=== PATIENT | female | born 2000 | race African-American/Black ===

== ENCOUNTER 2022-08-30 14:54 | Emergency (ER) | payer MEDICAID ==
[~2022-08-30] VITALS: Ht 157.5 cm; Wt 70.0 kg
[2022-08-30 15:27] VITALS: TEMP 98.6
[2022-08-30] MEDS ORDERED: METOCLOPRAMIDE HCL 5 MG/ML 2 ML VIAL IVP ONE (15:45)
[2022-08-30] MEDS ORDERED: ACETAMINOPHEN 1000 MG/ISO-OSM 100 ML IV ONE (15:45)
[2022-08-30] MEDS ORDERED: SODIUM CHLORIDE 0.9% 1,000 ML IV ONE (15:45)
[2022-08-30 15:58] LABS: BASOPHILS % (AUTO) 0.5 % (0.0-2.0); EOSINOPHILS % (AUTO) 0.2 % (1.0-6.0); HEMOGLOBIN 9.7 g/dL (12.0-16.0); LYMPHOCYTES # (AUTO) 0.8 K/uL (1.0-4.8); LYMPHOCYTES % (AUTO) 13.2 % (22.0-44.0); MEAN CORPUSCULAR HEMOGLOBIN 22.9 pg (26.0-34.0); MEAN CORPUSCULAR HGB CONC 31.3 G/dL (31.0-37.0); MEAN CORPUSCULAR VOLUME 73 fL (80-100); MONOCYTES # (AUTO) 0.3 K/uL (0.1-1.0); MONOCYTES % (AUTO) 4.4 % (2.0-9.0); NEUTROPHILS # (AUTO) 5.3 K/uL (1.8-7.7); NEUTROPHILS % (AUTO) 81.7 % (40.0-70.0); PLATELET COUNT (AUTO) 407 K/uL (150-450); RED BLOOD CELL COUNT(AUTO) 4.24 MIL/uL (4.00-5.20); RED CELL DISTRIBUTION WIDTH 20.7 % (11.5-14.5)
[2022-08-30 16:18] LABS: ANION GAP 7 mmol/L (8-16); CALCIUM, TOTAL 8.7 mg/dL (8.8-10.5); CARBON DIOXIDE 26 mmol/L (22-29); CHLORIDE 102 mmol/L (98-107); CREATININE 0.72 mg/dL (0.60-1.30); GLOMERULAR FILTR. RATE CALC > 60 mL/min (>60); GLUCOSE,RANDOM 94 mg/dL (70-110); POTASSIUM 4.4 mmol/L (3.5-5.1); SODIUM SERUM 135 mmol/L (136-145)
[2022-08-30 16:30] LABS: ALANINE AMINOTRANSFERASE 21 U/L (12-78); ALBUMIN 3.4 g/dL (3.4-5.0); ALKALINE PHOSPHATASE 50 U/L (46-116); ASPARTATE AMINOTRANSFERASE 36 U/L (15-37); BILIRUBIN,TOTAL 0.2 mg/dL (0.1-1.0); HCG,QUANTITATIVE < 1 mIU/mL (0-6); LIPASE 81 U/L (73-393); TOTAL PROTEIN, SERUM 8.7 g/dL (6.4-8.2)
[2022-08-30 17:17] VITALS: BP 126/75; PULSE 80; RESP 16
[2022-08-30 17:52] LABS: HEMATOCRIT 29.9 % (36-46); HEMOGLOBIN 9.3 g/dL (12.0-16.0)
== END 2022-08-30 18:18 | disposition left against medical advice (07) ==
LOC: EMS 14:55
DX: R10.9 Unspecified abdominal pain (principal)
CPT/HCPCS: 99284; 96365; 96375; 80053; 83690; 84702; 85014; 85018; 85025; 36415; J2765; J7030; J0131

== ENCOUNTER 2024-01-25 18:11 | Emergency (ER) | payer MEDICAID ==
[~2024-01-25] VITALS: Ht 157.5 cm; Wt 67.3 kg
[2024-01-25 18:13] VITALS: BP 130/75; PULSE 80; RESP 18; TEMP 98.5; O2SAT 99
[2024-01-25 18:34] LABS: BASOPHILS % (AUTO) 0.7 % (0.0-2.0); EOSINOPHILS % (AUTO) 0.6 % (1.0-6.0); HEMOGLOBIN 9.9 g/dL (12.0-16.0); LYMPHOCYTES # (AUTO) 0.7 K/uL (1.0-4.8); LYMPHOCYTES % (AUTO) 13.4 % (22.0-44.0); MEAN CORPUSCULAR HEMOGLOBIN 22.8 pg (26.0-34.0); MEAN CORPUSCULAR HGB CONC 30.8 G/dL (31.0-37.0); MEAN CORPUSCULAR VOLUME 74 fL (80-100); MONOCYTES # (AUTO) 0.2 K/uL (0.1-1.0); MONOCYTES % (AUTO) 3.2 % (2.0-9.0); NEUTROPHILS # (AUTO) 4.5 K/uL (1.8-7.7); NEUTROPHILS % (AUTO) 82.1 % (40.0-70.0); PLATELET COUNT (AUTO) 376 K/uL (150-450); RED BLOOD CELL COUNT(AUTO) 4.32 MIL/uL (4.00-5.20); RED CELL DISTRIBUTION WIDTH 19.7 % (11.5-14.5); WHITE BLOOD COUNT (AUTO) 5.5 K/uL (4.5-11.0)
[2024-01-25 18:45] LABS: ANION GAP 10 mmol/L (8-16); CARBON DIOXIDE 28 mmol/L (22-29); CHLORIDE 102 mmol/L (98-107); GLOMERULAR FILTR. RATE CALC > 60 mL/min (>60); GLUCOSE,RANDOM 105 mg/dL (70-110); POTASSIUM 3.7 mmol/L (3.5-5.1); SODIUM SERUM 140 mmol/L (136-145); UREA NITROGEN, BLOOD 11 mg/dL (7-18)
[2024-01-25 18:52] LABS: ALANINE AMINOTRANSFERASE 20 U/L (12-78); ALBUMIN 3.9 g/dL (3.4-5.0); ALKALINE PHOSPHATASE 47 U/L (46-116); ASPARTATE AMINOTRANSFERASE 25 U/L (15-37); BILIRUBIN,TOTAL 0.3 mg/dL (0.1-1.0); LIPASE 32 U/L (16-77); TOTAL PROTEIN, SERUM 8.9 g/dL (6.4-8.2)
[2024-01-25 18:56] LABS: RBC MORPHOLOGY COMMENT ABNORMAL RBC MORPH
[2024-01-25] MEDS: SODIUM CHLORIDE 0.9% 1,000 ML IV ONE (19:31)
[2024-01-25] MEDS: ONDANSETRON HCL 4 MG/2 ML VIAL IVP ONE (19:31)
[2024-01-25] MEDS: FAMOTIDINE 20 MG/2 ML VIAL IVP ONE (19:32)
== END 2024-01-25 21:10 | disposition left against medical advice (07) ==
LOC: EMS 18:11
DX: R11.2 Nausea with vomiting, unspecified (principal); R10.9 Unspecified abdominal pain
CPT/HCPCS: 99284; 96374; 96361; 96375; 80048; 80076; 83690; 84703; 85025; 36415; G0480; J3490; J2405; J7030